=== PATIENT | male | born 1950 | race Caucasian/White ===

== ENCOUNTER 2021-04-24 01:15 | Inpatient (IN) | payer MEDICARE, OTHER ==
[~2021-04-24] VITALS: Ht 177.8 cm; Wt 86.2 kg
[2021-04-24] MEDS ORDERED: XARELTO15 PACK PO (05:23)
[2021-04-24] MEDS ORDERED: FINASTERIDE5 MG PO (05:23)
[2021-04-24] MEDS ORDERED: VALSARTAN80 MG PO (05:24)
[2021-04-24] MEDS ORDERED: MYCOPHENOLATE250 MG PO (05:27)
[2021-04-24] MEDS ORDERED: PREDNISONE5 MG PO (05:27)
[2021-04-24] MEDS ORDERED: TACROLIMUS1 MG PO (05:27)
[2021-04-24] MEDS ORDERED: ASPIRIN EC81 MG PO (05:29)
[2021-04-24] MEDS ORDERED: COREG 25MG TAB25 MG PO (05:30)
[2021-04-24] MEDS ORDERED: FLOMAX 0.4 MG0.4 MG PO (05:30)
[2021-04-24] MEDS ORDERED: TRULICITY1.5 MG/0.5 SQ (05:30)
[2021-04-24] MEDS ORDERED: ZOCOR40 MG PO (05:31)
[2021-04-24] MEDS ORDERED: CHLORTHALIDONE25 MG PO (05:32)
[2021-04-24] MEDS ORDERED: PHOSPHOROUS 25250 MG PO (05:33)
[2021-04-24] MEDS ORDERED: CEROVITE SENIO1 EACH PO (05:33)
[2021-04-24] MEDS ORDERED: MAGNESIUM400 MG PO (05:34)
[2021-04-24 06:27] LABS: HEMOGLOBIN 14.9 gm/dl (14.0-17.5); RED BLOOD COUNT 4.77 M/UL (4.20-5.50); WHITE BLOOD COUNT 7.2 K/UL (4.5-11.0)
[2021-04-24 07:22] LABS: BUN/CREATININE RATIO 26 (0-10)
[2021-04-24] MEDS ORDERED: TRESIBA FL100 UNIT/1 SQ (15:17)
[2021-04-25 03:25] LABS: BUN/CREATININE RATIO 24 (0-10)
[2021-04-26 01:53] LABS: HEMOGLOBIN 14.5 gm/dl (14.0-17.5); RED BLOOD COUNT 4.62 M/UL (4.20-5.50); WHITE BLOOD COUNT 8.3 K/UL (4.5-11.0)
[2021-04-26 02:30] LABS: BUN/CREATININE RATIO 19 (0-10)
--- NOTE | 2021-04-26 10:38 | NUR ---
1015-PATIENT LEFT FOR FLUXER AT THIS TIME.
--- NOTE | 2021-04-26 12:25 | NUR ---
1159- PATIENT BACK FROM [facility] AT THIS TIME. CATH SITE CLEAN, DRY AND INTACT. VITAL SIGNS WNL.
[2021-04-26] MEDS ORDERED: ATORVASTATIN CA20 MG PO (15:50)
[2021-04-26] MEDS ORDERED: BRILINTA 90 MG90 MG PO (15:50)
--- NOTE | 2021-04-26 15:59 | NUR ---
1413- NOTIFIED DR RODGERS OF SCANT AMOUNT OF BLOOD ON GAUZE AT CATH SITE. NEW ORDER TO HOLD PRESSURE FOR 5 MINUTES. NEW ORDER TO START BRILINTA NOW AND START BID IN THE AM.
--- NOTE | 2021-04-27 00:29 | NUR ---
BP OF 185/76. 2100 COREG WAS GIVEN AND UPON RECHECK BP WAS 154/67
--- NOTE | 2021-04-27 02:49 | NUR ---
CALLED REPORT TO MARY RN AT [facility], CALLED EMS TO LET THEM KNOW PATIENT NEEDED TRANSPORT. AT 0242 AM PATIENT LEFT FLOOR VIA EMS WITH IV INTACT AND PATIENT IN STABLE CONDITION.
== END 2021-04-27 02:48 | disposition short-term general hospital (02) | DRG 281 ==
LOC: MED SURG 4 01:15
PROVIDERS: Internal Medicine; Physician Assistant Medical; ADMIT Internal Medicine
PROC: B24BZZ4 Ultrasonography of Heart with Aorta, Transesophageal (ICD-10-PCS; principal; 2021-04-24)
PROC: 4A023N7 Measurement of Cardiac Sampling and Pressure, Left Heart, Percutaneous Approach (ICD-10-PCS; 2021-04-26)
PROC: B2111ZZ Fluoroscopy of Multiple Coronary Arteries using Low Osmolar Contrast (ICD-10-PCS; 2021-04-26)
PROC: B2161ZZ Fluoroscopy of Right and Left Heart using Low Osmolar Contrast (ICD-10-PCS; 2021-04-26)
DX: I21.4 Non-ST elevation (NSTEMI) myocardial infarction (principal); Z94.0 Kidney transplant status; I48.0 Paroxysmal atrial fibrillation; E78.5 Hyperlipidemia, unspecified; Z20.822 Contact with and (suspected) exposure to COVID-19; I49.5 Sick sinus syndrome; E87.6 Hypokalemia; N40.0 Benign prostatic hyperplasia without lower urinary tract symptoms; N18.9 Chronic kidney disease, unspecified; I12.9 Hypertensive chronic kidney disease with stage 1 through stage 4 chronic kidney disease, or unspecified chronic kidney disease; E11.22 Type 2 diabetes mellitus with diabetic chronic kidney disease; Z95.0 Presence of cardiac pacemaker; Z79.01 Long term (current) use of anticoagulants; Z85.828 Personal history of other malignant neoplasm of skin; Z90.49 Acquired absence of other specified parts of digestive tract; Z82.49 Family history of ischemic heart disease and other diseases of the circulatory system; Z83.3 Family history of diabetes mellitus; Z79.899 Other long term (current) drug therapy; Z79.82 Long term (current) use of aspirin; Z79.4 Long term (current) use of insulin
CPT/HCPCS: ECHO; 36415; 80048; 80061; 82550; 82553; 82962; 84484; 85025; 85027; 93005; 93306; 99152; 99153; C1769; J0360; J1644; J1650; J2250; J3010; J3475; J7507; J7517; Q9967